=== PATIENT | female | born 1970 | race Caucasian/White ===

== ENCOUNTER → 2017-06-11 | Outpatient (CLI) | payer OTHER ==
[2016-06-27 19:36] VITALS: BP 127/75
[~2017-06-11] MED LIST: CONTRAST GIVEN MC PRN; IOHEXOL 240 MG/ML 50ML VIAL. PO ONE; IOHEXOL 300 MG/ML 75 ML VIAL IV ONE
--- NOTE | 2017-06-11 11:44 | RAD ---
CT of the chest and abdomen with contrast, 06/11/2017: History: Pleural effusions, breast cancer Multidetector CT imaging was performed following oral and IV administration of contrast. No previous studies are available at this time for comparison purposes. The right breast is surgically absent. An 11 mm subpectoral nodule probably represents a mildly prominent lymph node. No definite axillary adenopathy is seen. No mediastinal or hilar adenopathy is evident. The thoracic aorta is of normal caliber. There is a moderate sized right pleural effusion and a small left pleural effusion. There is mild underlying atelectasis in the right lung base. There is moderate streaky atelectasis/infiltrate in the right middle lobe medially. There is minimal infiltrate or atelectasis inferiorly in the lingula on the left. There is mild interlobular septal thickening bilaterally. There are couple of tiny pulmonary nodules in the lungs. The largest of these measures 5 mm and lies in the right upper lobe as seen on image 23 of series #2. There is a 4 mm nodule in the anterior aspect of the left upper lobe as seen on image 19 of series #2. Several other very tiny nodular opacities are seen, such as a 2 mm opacity in the posterior aspect of the right lower lobe as seen on image 33 of series #2. Several hepatic lesions are identified. The largest of these lies posteriorly in the right lobe and measures 3.8 cm. It demonstrates a medium density rim and low density centrally. There are 2 smaller lesions with similar characteristics which lie more superiorly in the right lobe. One of these at the ab hepatis level measures 2.5 cm. Smaller lesions are seen in the dome of the right lobe of the liver and anteriorly in the left lobe. Metastatic disease is likely. There is a 2 cm subcapsular lesion in the inferolateral aspect of the right lobe of the liver which demonstrates punctate peripheral enhancement. This could be an incidental hemangioma or an additional metastasis. The gallbladder is unremarkable. No pancreatic abnormality is seen. The spleen is of normal size. No renal or adrenal abnormality is detected. The abdominal aorta is of normal caliber. No abdominal adenopathy is seen. No free fluid is evident in the abdomen. There are numerous mixed lytic and sclerotic foci present in the bones. These are best seen throughout the spine, but are also present in the visualized portions of the upper pelvis and sternum. Rib lesions are seen including the lateral aspect of the left third rib. IMPRESSION: 1. Multiple hepatic masses compatible with metastatic disease. 2. Extensive mixed lytic and sclerotic osseous metastatic disease. 3. Several tiny pulmonary nodules raising the possibility of pulmonary metastases. 4. Moderate sized right pleural effusion and small left pleural effusion. 5. Mild interlobular septal thickening in the lungs may be due to interstitial edema or lymphangitic tumor. 6. Moderate streaky atelectasis/infiltrate in the right middle lobe. PQRS Compliance Statement: One or more of the following individualized dose reduction techniques were utilized for this examination: 1. Automated exposure control 2. Adjustment of the mA and/or kV according to patient size 3. Use of iterative reconstruction technique
== END | disposition home or self-care (01) ==
LOC: CT 08:09
PROVIDERS: ATTEND Internal Medicine
DX: J91.8 Pleural effusion in other conditions classified elsewhere (principal)
CPT/HCPCS: 71260; 74160; Q9966; Q9967